=== PATIENT | female | born 1975 | race Caucasian/White ===

== ENCOUNTER 2019-02-23 08:18 | Outpatient (CLI) | payer BC ==
[2019-02-23 08:56] LABS: BHCG - Serum Negative (NEGATIVE); Pregs Control Background? CLEAR/WHITE (CLR/WHITE); Pregs Control Bar Appear? YES (CONTROL BAR)
[2019-02-23 08:58] LABS: Follow-up Chemistry Comp? YES
--- NOTE | 2019-02-23 10:04 | RAD ---
HYSTEROSALPINGOGRAM: CLINICAL HISTORY: Infertility Fluoroscopic time: 0.7 minutes; 108.6 mcg/sq m PROCEDURE: Informed consent was obtained. Utilizing standard sterile speculum exam, the cervix was lo calized and then sterilized with Betadine solution. A small catheter was then utilized to cannulate the endometrial canal, after which a low pressure instillation of contrast was performed, with subseq uent radiographic imaging. No procedural complications were present. Patient tolerated the procedure well. FINDINGS: Endometrial cavity: No filling defects or intraluminal scar demonstrated. Fallopian tubes: Patent, bilaterally, with free spill. IMPRESSION: Normal HSG
[2019-02-23] MEDS ORDERED: Iopamidol 300 61% 30 ML VIAL ONE (11:45)
== END 2019-02-23 08:19 | disposition home or self-care (01) ==
LOC: RAD 08:18
PROVIDERS: ATTEND Physician Assistant
DX: Z31.41 Encounter for fertility testing (principal)
CPT/HCPCS: 36415; 58340; 74740; 84703; Q9967